=== PATIENT | female | born 1990 | race Caucasian/White ===

== ENCOUNTER 2025-02-20 11:55 | Emergency (ER) | payer OTHER, SELFPAY ==
--- NOTE | ~2025-02-20 | XR_ITS ---
EXAMINATION: XR ankle RT min 3V DATE: 02/20/2025 13:12 INDICATION: Twisting right ankle injury post fall TECHNIQUE: Anteroposterior, oblique, mortise, and lateral views of the right ankle were obtained. COMPARISON: None. FINDINGS: Alignment is normal. No fracture. Joint spaces are well maintained. No ankle joint effusion. The so ft tissues are unremarkable. IMPRESSION: 1. Normal right ankle radiographs. Reviewed, dictated and finalized at location A.
[2025-02-20 12:24] VITALS: BP 127/79; PULSE 80; RESP 16; TEMP 36.5; O2SAT 100
--- NOTE | 2025-02-20 13:01 | ED_ITS ---
HPI - General Adult General Chief complaint: Extremity Injury, Lower Stated complaint: Injured Right Ankle Time Seen by Provider: 02/20/25 13:01 Source: patient Mode of arrival: ambulatory Limitations: no limitations History of Present Illness HPI narrative: 35-year-old female patient presents to the [facility] with complaints of right ankle pain. Patient states she went to go in step off of a curb today and misjudged a step and twisted her right ankle. Patient states she did ice it take some Advil after the incident. Patient states she is able to walk on it but it is pretty painful. Related Data Home Medications ?Medication ?Instructions ?Recorded ?Confirmed ?Last Taken ?Type gabapentin 100 mg capsule mg 02/20/25 Unknown History Allergies Allergy/AdvReac Type Severity Reaction Status Date / Time No Known Allergies Allergy Verified 02/20/25 12:35 Review of Systems Review of Systems: CONSTITUTIONAL: Denies fever, chills, or sweats. EYES: Denies visual changes, redness, or discharge. ENT: Denies rhinorrhea, congestion, sore throat, or otalgia. CARDIOVASCULAR: Denies chest pain, palpitations, or edema. RESPIRATORY: Denies cough or dyspnea. GASTROINTESTINAL: Denies abdominal pain, nausea, vomiting, or diarrhea. GENITOURINARY: Denies dysuria or hematuria. SKIN: Denies rash or itching. MUSCULOSKELETAL: Denies back pain, joint pain, or myalgia. Positive right ankle pain NEUROLOGIC: Denies headache, numbness, or weakness. PSYCHIATRIC: Denies anxiety or depression. [facility] Past Medical History Medical History (Updated 02/20/25 @ 13:37 by AMY Whittington) No significant past medical history Comments At the time of my signature I agree with nursing past medical history, surgical, social, and family history. There is no relevant family history pertinent to the presenting complaint. Exam Narrative: GENERAL: Well-appearing, well-nourished, and in no acute distress. HEAD: Normocephalic, atraumatic. EYES: PERRLA and EOMI. ENT: Nares clear, no rhinorrhea or epistaxis. Mucous membranes moist. NECK: Supple. No lymphadenopathy CHEST: Clear to auscultation. No respiratory distress. HEART: Regular rate and rhythm. No murmur heard. Normal peripheral pulses. ABDOMEN: Soft, nontender, nondistended, normal active bowel sounds. EXTREMITIES: Patient is able to bear weight and ambulate with pain. The R ankle is without obvious asymmetry or deformity when compared to the L ankle. Patient can flex/extend, invert/aj. No obvious surface trauma, ecchymosis. soft tissue swelling noted to lateral malleolus. bony tenderness to palpation over the lateral malleolus. Anterior talofibular ligament, posterior talofibular ligament, calcaneofibular ligament nontender and without swelling. No tenderness or deformity of the midfootor over the proximal fifth metatarsal. Good DP and posterior tibial pulses and sensation to light touch normal. Talar tilt test is negative for ligament laxity to valgus or vargus stress. Negative anterior draw. Peroneal nerve is intact with strong eversion and plantar flexion. SKIN: Warm, dry, no rash. NEURO: No focal deficits. Alert and oriented x3. Course Course Level of Care: Express Care Visit Vital Signs Vital signs: Vital Signs Temperature 36.5 C 02/20/25 12:24 Pulse Rate 80 02/20/25 12:24 Respiratory Rate 16 02/20/25 12:24 Blood Pressure 127/79 02/20/25 12:24 Pulse Oximetry 100 02/20/25 12:24 Temperature 36.5 C 02/20/25 12:24 Pulse Rate 80 02/20/25 12:24 Respiratory Rate 16 02/20/25 12:24 Blood Pressure 127/79 02/20/25 12:24 Pulse Oximetry 100 02/20/25 12:24 Vital signs reviewed. Medical Decision Making MDM Narrative Medical decision making narrative: plan care patient's x-ray the right ankle to assess for any acute fracture. I will reassess patient once resulted. Differential Diagnosis Differential Diagnosis: Differential diagnosis: Foot fracture, crush injury, compartment syndrome, contusion, sprain, tendinitis,lisfranc sprain or fracture, avulsion fracture, grown toenail, diabetic ulcer. Vital Signs Vital Signs: Vital Signs Temperature 36.5 C 02/20/25 12:24 Pulse Rate 80 02/20/25 12:24 Respiratory Rate 16 02/20/25 12:24 Blood Pressure 127/79 02/20/25 12:24 Pulse Oximetry 100 02/20/25 12:24 Temperature 36.5 C 02/20/25 12:24 Pulse Rate 80 02/20/25 12:24 Respiratory Rate 16 02/20/25 12:24 Blood Pressure 127/79 02/20/25 12:24 Pulse Oximetry 100 02/20/25 12:24 Imaging Data Radiologist's impression: [facility] [address] [place] [address] [place] [address] XRay Report Signed Patient: Urmila Peters : 1990 MR#: [id number] Age: 35 Acct:[id number] Loc: [id number] ADM Date: 02/20/25Attending Dr: Ordering Physician: Yris Richards OFFICE NURSE Date of Service: 02/20/25 Procedure(s): XR ankle RT min 3V Accession Number(s): [id number] cc: [employer] PHYSICIAN; Yris Richards OFFICE NURSE~ EXAMINATION: XR ankle RT min 3V DATE: 02/20/2025 13:12 INDICATION: Twisting right ankle injury post fall TECHNIQUE: Anteroposterior, oblique, mortise, and lateral views of the right ankle were obtained. COMPARISON: None. FINDINGS: Alignment is normal. No fracture. Joint spaces are well maintained. No ankle joint effusion. The soft tissues are unremarkable. IMPRESSION: 1. Normal right ankle radiographs. Reviewed, dictated and finalized at location A. Critical Care Time Critical Care Time Critical Care Time: No Discharge Plan Discharge Clinical Impression: Ankle sprain and strain Patient Disposition: Home Condition: Stable Instructions: Antibiotic Form, Ankle Sprain (ED) Additional Instructions: Avoid weight bearing until the pain subsides. Ice to the area 20-30 minutes 4-6 times a day Elevate above heart Elastic wrap or orthopedic splint as directed for comfort for the next 5-7 days Crutches as directed if needed Tylenol for lesser pain Ibuprofen regularly for the next 2-3 days for the inflammation Follow up with your primary care provider if the condition is not improving within 1 week or sooner if the Condition worsens with numbness, tingling, decrease sensation with weakness to seek ER. Patient Language: [place] Islander Prescriptions: No Action gabapentin 100 mg capsule Follow-up/Referrals: PHYSICIAN,[employer] [Primary Care Provider] - Time of Disposition: 13:37
== END 2025-02-20 13:42 | disposition home or self-care (01) ==
PROVIDERS: Emergency Provider Nurse Practitioner Family
DX: S93.401A Sprain of unspecified ligament of right ankle, initial encounter (principal); S96.911A Strain of unspecified muscle and tendon at ankle and foot level, right foot, initial encounter; X50.9XXA Other and unspecified overexertion or strenuous movements or postures, initial encounter
CPT/HCPCS: 73610; 99203; G0463